=== PATIENT | male | born 1965 | race Caucasian/White ===

== ENCOUNTER 2018-09-10 07:22 | Emergency (ER) | payer BC, OTHER ==
[~2018-09-10] VITALS: Ht 188 cm; Wt 100.0 kg
[2018-09-10] MEDS ORDERED: TETRACAINE 0.5% OPHTH SOLN 4ML OD ONE (08:00)
[2018-09-10] MEDS ORDERED: FLUORESCEIN OPHTH 1 MG STRIP OD ONE (08:00)
[2018-09-10] MEDS ORDERED: ADACEL/BOOSTRIX VACCINE (DIPHTH/PERTUSS/ACELL/TETANUS)0.5ML SYR (90715) IM ONE (08:15)
[2018-09-10] MEDS ORDERED: CIPROFLOXACIN 0.3% OPHTH SOLN 2.5ML OD ONE (08:15)
[2018-09-10] MEDS ORDERED: CIPR0.3S OD (08:21)
[2018-09-10 08:47] VITALS: BP 130/92
== END 2018-09-10 08:47 | disposition home or self-care (01) ==
LOC: M ED 07:22
DX: S05.01XA Injury of conjunctiva and corneal abrasion without foreign body, right eye, initial encounter (principal); X58.XXXA Exposure to other specified factors, initial encounter; Y92.89 Other specified places as the place of occurrence of the external cause; I10 Essential (primary) hypertension; Z91.018 Allergy to other foods; Z88.0 Allergy status to penicillin

== ENCOUNTER → 2019-11-21 | Outpatient (CLI) | payer BC, OTHER ==
[~2019-11-21] MED LIST: CIPR0.3S6 OD; PROHANCE 279.3MG/ML 15ML VIAL As Ordered ONE; PROHANCE 279.3MG/ML 5ML VIAL As Ordered ONE
--- NOTE | 2019-11-27 11:03 | REP ---
MRI OF THE RIGHT KNEE WITH AND WITHOUT CONTRAST: 11/21/19 HISTORY: Pain. Palpable lump bilaterally. MRI of the right knee is performed in the axial, coronal, and sagittal planes prior to and following the intravenous administration of 20ml ProHance. The area of the palpable lump laterally is marked on the skin. There's no evidence of a meniscal tear. The cruciate ligaments are intact. The medial collateral ligament is intact. There is ill-defined high signal on T2 weighted images in the inferior aspect of the fibular collateral ligament and also in the adjacent anterior ligament of the fibular head, consistent with partial tears. These are probably chronic. There is adjacent cystic change more superficially laterally in the region of the palpable lump with multiloculate multi-septated sub-centimeter cyst along the lateral margin of the fibular head and peroneus longus. These extend for a craniocaudal dimension of about 2.5cm with a maximum width of the cysts 5mm. There is ill-defined edema in the adjacent extensor digitorum longus muscle suggesting a strain. Tiny sub-centimeter cyst with a thin septation is seen at the proximal tibiofibular articulation. The extensor mechanism is intact. 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 There is mild chondromalacia diffusely of the femoral condyles and tibial plateaus with no focal defect. There is no abnormal bone marrow signal. There is no bone marrow edema or occult fracture. There is a normal amount of joint fluid. There is a tiny amount of fluid in the medial popliteal fossa. There is no abnormal enhancement following the administration of intravenous contrast. IMPRESSION: 1. No meniscal tear. Cruciate ligaments intact. There appears to be a partial tear, likely chronic, of the inferior aspect of the fibular collateral ligament and also of the adjacent anterior ligament of the fibular head. At the site of the palpable lump in the adjacent lateral soft tissues, there are multiple septated loculated sub-centimeter cysts along the lateral margin of the fibular head and peroneus longus muscle as discussed above. There is also edema in the adjacent extensor digitorum longus muscle likely representing a muscle strain. 2. Moderate chondromalacia of the patella with a more mild degree of chondromalacia of the femoral condyles and tibial plateaus. No bone marrow abnormality is seen. MTDD
== END ==
LOC: M RAD 08:43
PROVIDERS: ATTEND Orthopaedic Surgery
DX: M94.261 Chondromalacia, right knee (principal)
CPT/HCPCS: 73723; A9576

== ENCOUNTER 2022-01-06 23:19 | Emergency (ER) | payer BC, OTHER ==
[~2022-01-06] VITALS: Ht 188 cm; Wt 90.1 kg
[~2022-01-06 23:19] MED LIST changes: -PROHANCE 279.3MG/ML 15ML VIAL As Ordered ONE; -PROHANCE 279.3MG/ML 5ML VIAL As Ordered ONE
[2022-01-07 00:12] LABS: EOS % 0.8 % (0.0-3.0); HEMATOCRIT 41.2 % (42.0-52.0); HEMOGLOBIN 13.3 g/dl (13.5-17.5); LYMPH # 0.8 10^3/uL (1.5-5.0); LYMPH % 30.3 % (24.0-44.0); MEAN CORPUSCULAR HEMOGLOBIN 28.7 pg (27.0-33.0); MEAN CORPUSCULAR HGB CONC 32.3 g/dl (32.0-36.5); MONO # 0.3 10^3/uL (0.0-0.8); MONO % 12.5 % (2.0-8.0); NEUTROPHILS # 1.5 10^3/uL (1.5-8.5); NEUTROPHILS % 55.6 % (36.0-66.0); PLATELET COUNT, AUTOMATED 150 10^3/uL (150-450); RED BLOOD COUNT 4.63 10^6/uL (4.30-6.10); WHITE BLOOD COUNT 2.6 10^3/uL (4.0-10.0)
[2022-01-07 00:23] LABS: ALBUMIN 3.4 G/DL (3.2-5.2); ALT/SGPT 28 U/L (7.0-40); BILIRUBIN,DIRECT 0.2 MG/DL (<0.4); BILIRUBIN,TOTAL 0.6 MG/DL (0.3-1.2); BLOOD UREA NITROGEN 17 MG/DL (9-23); CALCIUM LEVEL 7.6 MG/DL (8.5-10.1); CARBON DIOXIDE LEVEL 26 MMOL/L (20-31); CHLORIDE LEVEL 104 MMOL/L (98-107); CK-MB VALUE MASS < 1.0 NG/ML (<3.6); CPK CREATINE PHOSPHOKINASE 104 U/L (46-171); CREATININE FOR GFR 0.91 MG/DL (0.70-1.30); GLOMERULAR FILTRATION RATE > 60.0 (>56); GLUCOSE, FASTING 120 MG/DL (60-100); MAGNESIUM LEVEL 1.8 MG/DL (1.8-2.4); MB/CK RELATIVE INDEX 0.96 (< OR =4); POTASSIUM SERUM 3.7 MMOL/L (3.5-5.1); SODIUM LEVEL 141 MMOL/L (136-145); THYROID STIMULATING HORMONE 1.878 uIU/ML (0.55-4.78); THYROXINE (T4) 8.1 UG/DL (4.5-10.9); TOTAL PROTEIN 5.9 G/DL (5.7-8.2)
[2022-01-07] MEDS ORDERED: NS 1,000 ML IV ONE (02:00)
[2022-01-07 03:32] LABS: CK-MB VALUE MASS 1.2 NG/ML (<3.6); MB/CK RELATIVE INDEX 1.14 (< OR =4)
[2022-01-07] MEDS ORDERED: ASPIRIN 81 MG CHEW TABLET PO ONE (04:15)
[2022-01-07] MEDS ORDERED: HEPARIN DRIP 25,000 UNITS in IV 1 EA IV SCH (04:15)
[2022-01-07] MEDS ORDERED: ISOVUE-370 76% 100ML VIAL As Ordered ONE (04:20)
[2022-01-07 06:11] LABS: CK-MB VALUE MASS 1.1 NG/ML (<3.6); MB/CK RELATIVE INDEX 1.12 (< OR =4)
[2022-01-07] MEDS ORDERED: OSELTAMIVIR PHOSPHATE 75 MG CAP (TAMIFLU) PO ONE (06:15)
[2022-01-07] MEDS ORDERED: hydrALAZINE 20MG/ML 1ML VIAL (J0360 PER 20MG) IV STA (07:29)
[2022-01-07 08:25] VITALS: BP 135/91
== END 2022-01-07 08:30 | disposition short-term general hospital (02) ==
LOC: M ED 23:19 → EDBD 23:19 → M ED 01-07 08:30
DX: J09.X2 Influenza due to identified novel influenza A virus with other respiratory manifestations (principal); I21.4 Non-ST elevation (NSTEMI) myocardial infarction; Z88.0 Allergy status to penicillin; Z91.018 Allergy to other foods
CPT/HCPCS: 70450; 71045; 71275; 72125; 80048; 80076; 82550; 82553; 83605; 83735; 83880; 84436; 84443; 84484; 85025; 87486; 87581; 87633; 87798; 93005; 96374; 99285; J1644

== ENCOUNTER 2023-09-08 03:33 | Emergency (ER) | payer BC, OTHER ==
[~2023-09-08] VITALS: Ht 188 cm; Wt 93.3 kg
[~2023-09-08 03:33] MED LIST changes: +CIPR0.3S37 OD; -CIPR0.3S6 OD
[2023-09-08 03:34] VITALS: TEMP 97.6
[2023-09-08] MEDS ORDERED: NITROGLYCERIN 0.4MG SUBL TABLET As Ordered ONE (03:57)
[2023-09-08] MEDS ORDERED: HEPARIN DRIP 25,000 UNITS in IV 1 EA IV SCH (04:00)
[2023-09-08] MEDS ORDERED: HEPARIN SOD (PORCINE) 5000UNITS/ML 1ML VIAL/SYRINGE IV ONE (04:00)
[2023-09-08] MEDS ORDERED: HEPARIN SOD (PORCINE) 5000UNITS/ML 1ML VIAL/SYRINGE IV PRN (04:00)
[2023-09-08] MEDS ORDERED: ATROPINE SULF 0.4 MG/ML 1ML VIAL As Ordered ONE (04:01)
[2023-09-08] MEDS ORDERED: ATROPINE SULF 1MG/10ML SYRINGE As Ordered ONE (04:20)
[2023-09-08] MEDS: CLOPIDOGREL 300 MG TAB (PLAVIX) PO ONE (04:21)
[2023-09-08] MEDS ORDERED: TENECTEPLASE 50 MG/10 ML VIAL As Ordered ONE (04:25)
[2023-09-08 04:28] LABS: BASO % 0.2 % (0.0-1.0); EOS % 0.3 % (0.0-3.0); HEMATOCRIT 44.9 % (42.0-52.0); LYMPH % 9.8 % (24.0-44.0); MEAN CORPUSCULAR HEMOGLOBIN 28.9 pg (27.0-33.0); MEAN CORPUSCULAR HGB CONC 33.4 g/dl (32.0-36.5); MEAN CORPUSCULAR VOLUME 86.5 fl (80.0-96.0); MONO # 0.3 10^3/uL (0.0-0.8); MONO % 3.1 % (2.0-8.0); NEUTROPHILS # 8.7 10^3/uL (1.5-8.5); NEUTROPHILS % 86.2 % (36.0-66.0); PLATELET COUNT, AUTOMATED 224 10^3/uL (150-450); RED BLOOD COUNT 5.19 10^6/uL (4.30-6.10)
[2023-09-08] MEDS: TENECTEPLASE 50 MG/10 ML VIAL IV STA (04:32)
[2023-09-08] MEDS: LORazepam 2 MG/ML 1ML VIAL IV STA (04:33)
[2023-09-08] MEDS: NITROGLYCERIN 0.4MG SUBL TABLET SL PRN (04:33)
[2023-09-08 04:34] VITALS: BP 147/94
[2023-09-08] MEDS: HEPARIN DRIP 25,000 UNITS in IV 1 EA IV SCH (04:39)
[2023-09-08 04:40] VITALS: O2SAT 97
[2023-09-08 04:40] LABS: INR 1.02; PARTIAL THROMBOPLASTIN TIME 29.6 SECONDS (24.8-34.2); PROTHROMBIN TIME 13.1 SECONDS (12.5-14.5)
[2023-09-08] MEDS: HEPARIN SOD (PORCINE) 5000UNITS/ML 1ML VIAL/SYRINGE IV ONE (04:40)
[2023-09-08 04:51] LABS: LIPASE 35 U/L (12-53)
[2023-09-08 04:53] LABS: BLOOD UREA NITROGEN 20 MG/DL (9-23); CARBON DIOXIDE LEVEL 32 MMOL/L (20-31); CHLORIDE LEVEL 102 MMOL/L (98-107); CHOLESTEROL LEVEL 279 MG/DL (<200); CHOLESTEROL RISK RATIO 4.02 (<5); CK-MB VALUE MASS 2.9 NG/ML (<3.6); CPK CREATINE PHOSPHOKINASE 100 U/L (46-171); CREATININE FOR GFR 0.82 MG/DL (0.70-1.30); GLOMERULAR FILTRATION RATE > 60.0 (>56); GLUCOSE, FASTING 109 MG/DL (60-100); HDL CHOLESTEROL 69.4 MG/DL (>40); LDL CHOLESTEROL 192.8 MG/DL (<100); NON-HDL-C 209.6 MG/DL; POTASSIUM SERUM 3.8 MMOL/L (3.5-5.1); SODIUM LEVEL 140 MMOL/L (136-145); TRIGLYCERIDES LEVEL 84 MG/DL (<150)
== END 2023-09-08 04:47 | disposition short-term general hospital (02) ==
LOC: M ED 03:33
DX: I21.3 ST elevation (STEMI) myocardial infarction of unspecified site (principal); R55 Syncope and collapse; Z88.0 Allergy status to penicillin; Z88.8 Allergy status to other drugs, medicaments and biological substances
CPT/HCPCS: 70450; 71045; 80048; 80061; 82550; 82553; 83690; 84484; 85025; 85610; 85730; 93005; 93041; 94760; 96365; 96375; 96376; 99285; J2060; J3101

== ENCOUNTER 2023-11-21 10:30 | Emergency (ER) | payer BC ==
[~2023-11-21] VITALS: Ht 188 cm; Wt 88.6 kg
[2023-11-21 11:00] VITALS: TEMP 97.7
[2023-11-21 11:07] LABS: BASO % 0.3 % (0.0-1.0); EOS % 0.1 % (0.0-3.0); HEMATOCRIT 45.2 % (42.0-52.0); HEMOGLOBIN 15.4 g/dl (13.5-17.5); LYMPH # 0.7 10^3/uL (1.5-5.0); LYMPH % 9.2 % (24.0-44.0); MEAN CORPUSCULAR HEMOGLOBIN 29.7 pg (27.0-33.0); MEAN CORPUSCULAR HGB CONC 34.1 g/dl (32.0-36.5); MEAN CORPUSCULAR VOLUME 87.3 fl (80.0-96.0); MONO # 0.3 10^3/uL (0.0-0.8); MONO % 3.4 % (2.0-8.0); NEUTROPHILS # 6.6 10^3/uL (1.5-8.5); NEUTROPHILS % 86.9 % (36.0-66.0); PLATELET COUNT, AUTOMATED 212 10^3/uL (150-450); RED BLOOD COUNT 5.18 10^6/uL (4.30-6.10); WHITE BLOOD COUNT 7.6 10^3/uL (4.0-10.0)
[2023-11-21] MEDS ORDERED: FARX1TAB3 (11:13)
[2023-11-21] MEDS ORDERED: METO1TAB33 (11:13)
[2023-11-21] MEDS ORDERED: EZET10TA21 (11:13)
[2023-11-21] MEDS ORDERED: REPA140I2 (11:13)
[2023-11-21] MEDS ORDERED: CLOP75TA2 (11:13)
[2023-11-21] MEDS ORDERED: LISI5TAB11 (11:13)
[2023-11-21] MEDS ORDERED: ASPI-226 (11:13)
[2023-11-21] MEDS ORDERED: SPIR-10 (11:13)
[2023-11-21 11:19] LABS: INR 1.03; PROTHROMBIN TIME 13.2 SECONDS (12.5-14.5)
[2023-11-21 11:38] LABS: CK-MB VALUE MASS < 1.0 NG/ML (<3.6); LIPASE 33 U/L (12-53)
[2023-11-21 11:40] LABS: ALBUMIN 4.3 G/DL (3.2-5.2); ALKALINE PHOSPHATASE 80 U/L (46-116); ALT/SGPT 29 U/L (7.0-40); AST/SGOT 14 U/L (<34); BILIRUBIN,DIRECT 0.3 MG/DL (<0.4); BILIRUBIN,TOTAL 0.9 MG/DL (0.3-1.2); BLOOD UREA NITROGEN 19 MG/DL (9-23); CALCIUM LEVEL 9.5 MG/DL (8.3-10.6); CARBON DIOXIDE LEVEL 28 MMOL/L (20-31); CHLORIDE LEVEL 107 MMOL/L (98-107); CREATININE FOR GFR 0.89 MG/DL (0.70-1.30); GLOMERULAR FILTRATION RATE > 60.0 (>49); GLUCOSE, FASTING 104 MG/DL (74-106); POTASSIUM SERUM 4.4 MMOL/L (3.5-5.1); SODIUM LEVEL 139 MMOL/L (136-145); TOTAL PROTEIN 7.3 G/DL (5.7-8.2)
[2023-11-21 11:46] LABS: CPK CREATINE PHOSPHOKINASE 65 U/L (46-171); MB/CK RELATIVE INDEX 1.53 (< OR =4)
[2023-11-21 12:34] LABS: CK-MB VALUE MASS < 1.0 NG/ML (<3.6)
[2023-11-21 12:36] LABS: CPK CREATINE PHOSPHOKINASE 58 U/L (46-171); MB/CK RELATIVE INDEX 1.72 (< OR =4)
[2023-11-21] MEDS: SUCRALFATE SUSP 1GM/10ML UD PO ONE (12:41)
[2023-11-21 14:54] VITALS: BP 132/88
[2023-11-21] MEDS: NITROGLYCERIN 0.4MG SUBL TABLET SL PRN (14:54)
[2023-11-21] MEDS: PANTOPRAZOLE 40MG TAB (PROTONIX) PO ONE (15:00)
[2023-11-21] MEDS: ALPRAZolam 0.25 MG TAB PO ONE (15:31)
[2023-11-21 15:45] VITALS: BP 124/87
[2023-11-21] MEDS ORDERED: XANA0.25 PO (15:52)
[2023-11-21] MEDS ORDERED: PROT1TAB2 PO (15:52)
[2023-11-21] MEDS ORDERED: NITR0.4S14 SL (15:53)
[2023-11-21 16:00] VITALS: O2SAT 97
== END 2023-11-21 16:05 | disposition home or self-care (01) ==
LOC: M ED 10:30
DX: R07.9 Chest pain, unspecified (principal); I25.2 Old myocardial infarction; I44.5 Left posterior fascicular block; I25.119 Atherosclerotic heart disease of native coronary artery with unspecified angina pectoris; Z88.0 Allergy status to penicillin; Z91.018 Allergy to other foods; Z79.01 Long term (current) use of anticoagulants; Z79.1 Long term (current) use of non-steroidal anti-inflammatories (NSAID); Z79.899 Other long term (current) drug therapy

== ENCOUNTER 2023-11-22 03:45 | Emergency (ER) | payer BC ==
[~2023-11-22] VITALS: Ht 188 cm; Wt 96.7 kg
[~2023-11-22 03:45] MED LIST changes: +ASPI-226; +CLOP75TA2; +EZET10TA21; +FARX1TAB3; +LISI5TAB11; +METO1TAB33; +NITR0.4S14 SL; +PROT1TAB2 PO; +REPA140I2; +SPIR-10; +XANA0.25 PO
[2023-11-22] MEDS ORDERED: HYOSCYAMINE SULFATE 0.125 MG SUBL TABLET SL ONE (04:00)
[2023-11-22] MEDS: MORPHINE 2 MG/ML 1ML VIAL IV ONE ×2 (04:13→05:46)
[2023-11-22] MEDS ORDERED: ATROPINE SULF 0.4 MG/ML 1ML VIAL As Ordered ONE (04:25)
[2023-11-22 04:30] LABS: BASO % 0.5 % (0.0-1.0); EOS # 0.1 10^3/uL (0.0-0.5); EOS % 1.4 % (0.0-3.0); HEMATOCRIT 43.8 % (42.0-52.0); HEMOGLOBIN 14.6 g/dl (13.5-17.5); LYMPH # 1.7 10^3/uL (1.5-5.0); LYMPH % 30.6 % (24.0-44.0); MEAN CORPUSCULAR HEMOGLOBIN 29.4 pg (27.0-33.0); MEAN CORPUSCULAR HGB CONC 33.3 g/dl (32.0-36.5); MEAN CORPUSCULAR VOLUME 88.3 fl (80.0-96.0); MONO # 0.5 10^3/uL (0.0-0.8); MONO % 8.9 % (2.0-8.0); NEUTROPHILS # 3.3 10^3/uL (1.5-8.5); NEUTROPHILS % 58.1 % (36.0-66.0); PLATELET COUNT, AUTOMATED 229 10^3/uL (150-450); RED BLOOD COUNT 4.96 10^6/uL (4.30-6.10); WHITE BLOOD COUNT 5.6 10^3/uL (4.0-10.0)
[2023-11-22] MEDS: ATROPINE SULF 0.4 MG/ML 1ML VIAL IV STA (04:30)
[2023-11-22] MEDS: NOREPINEPHRINE 4MG IN D5 250ML 4 MG in IV 1 EA IV SCH (04:37)
[2023-11-22 04:44] LABS: BLOOD UREA NITROGEN 18 MG/DL (9-23); CALCIUM LEVEL 9.2 MG/DL (8.3-10.6); CARBON DIOXIDE LEVEL 28 MMOL/L (20-31); CHLORIDE LEVEL 105 MMOL/L (98-107); CREATININE FOR GFR 0.99 MG/DL (0.70-1.30); GLOMERULAR FILTRATION RATE > 60.0 (>49); GLUCOSE, FASTING 102 MG/DL (74-106); POTASSIUM SERUM 4.2 MMOL/L (3.5-5.1); SODIUM LEVEL 141 MMOL/L (136-145)
[2023-11-22 04:46] LABS: CPK CREATINE PHOSPHOKINASE 117 U/L (46-171)
[2023-11-22] MEDS ORDERED: HEPARIN SOD (PORCINE) 5000UNITS/ML 1ML VIAL/SYRINGE IV PRN (04:50)
[2023-11-22] MEDS ORDERED: ISOVUE-370 76% 100ML VIAL As Ordered ONE (04:55)
[2023-11-22 05:00] LABS: CK-MB VALUE MASS 6.9 NG/ML (<3.6); MB/CK RELATIVE INDEX 5.89 (< OR =4)
[2023-11-22] MEDS: HEPARIN SOD (PORCINE) 5000UNITS/ML 1ML VIAL/SYRINGE IV ONE (05:20)
[2023-11-22] MEDS: HEPARIN DRIP 25,000 UNITS in IV 1 EA IV SCH (05:22)
[2023-11-22 05:24] VITALS: TEMP 97.6
[2023-11-22] MEDS: fentaNYL 100 MCG/2 ML INJECTION IV ONE (05:24)
[2023-11-22 06:05] LABS: CK-MB VALUE MASS 5.8 NG/ML (<3.6)
[2023-11-22 06:11] LABS: MB/CK RELATIVE INDEX 5.91 (< OR =4)
[2023-11-22 06:30] VITALS: BP 134/85; O2SAT 99
== END 2023-11-22 06:31 | disposition short-term general hospital (02) ==
LOC: M ED 03:45
DX: I21.4 Non-ST elevation (NSTEMI) myocardial infarction (principal); R00.1 Bradycardia, unspecified; I25.2 Old myocardial infarction; K21.9 Gastro-esophageal reflux disease without esophagitis; E11.9 Type 2 diabetes mellitus without complications; I10 Essential (primary) hypertension; E78.5 Hyperlipidemia, unspecified; F41.9 Anxiety disorder, unspecified; Z88.0 Allergy status to penicillin; Z91.018 Allergy to other foods; Z79.1 Long term (current) use of non-steroidal anti-inflammatories (NSAID); Z79.4 Long term (current) use of insulin; Z79.899 Other long term (current) drug therapy
CPT/HCPCS: 71045; 71275; 80048; 82550; 82553; 84484; 85025; 85730; 93005; 93041; 94760; 96365; 96374; 96375; 96376; 99291; J0461; J3010; Q9967

== ENCOUNTER 2024-02-01 18:21 | Emergency (ER) | payer BC ==
[2024-02-01] MEDS ORDERED: PRAS10TA2 (18:36)
[2024-02-01 18:46] LABS: BASO % 0.2 % (0.0-1.0); EOS % 0.5 % (0.0-3.0); HEMATOCRIT 50.9 % (42.0-52.0); HEMOGLOBIN 17.2 g/dl (13.5-17.5); LYMPH # 1.3 10^3/uL (1.5-5.0); MEAN CORPUSCULAR HEMOGLOBIN 29.1 pg (27.0-33.0); MEAN CORPUSCULAR HGB CONC 33.8 g/dl (32.0-36.5); MONO # 0.4 10^3/uL (0.0-0.8); MONO % 4.6 % (2.0-8.0); NEUTROPHILS # 6.5 10^3/uL (1.5-8.5); NEUTROPHILS % 78.5 % (36.0-66.0); PLATELET COUNT, AUTOMATED 245 10^3/uL (150-450); WHITE BLOOD COUNT 8.3 10^3/uL (4.0-10.0)
[2024-02-01 18:49] LABS: RED BLOOD COUNT 5.92 10^6/uL (4.30-6.10)
[2024-02-01 18:56] LABS: INR 0.97; PROTHROMBIN TIME 13.2 SECONDS (12.5-14.5)
[2024-02-01 19:20] LABS: ALBUMIN 4.6 G/DL (3.2-5.2); ALKALINE PHOSPHATASE 73 U/L (40-129); ALT/SGPT 31 U/L (7.0-40); AST/SGOT 56 U/L (<34); BILIRUBIN,DIRECT 0.2 MG/DL (<0.4); BILIRUBIN,TOTAL 1.1 MG/DL (0.3-1.2); BLOOD UREA NITROGEN 19 MG/DL (9-23); CALCIUM LEVEL 9.7 MG/DL (8.3-10.6); CARBON DIOXIDE LEVEL 27 MMOL/L (20-31); CHLORIDE LEVEL 104 MMOL/L (98-107); CK-MB VALUE MASS < 1.0 NG/ML (<3.6); CPK CREATINE PHOSPHOKINASE 87 U/L (46-171); CREATININE FOR GFR 0.84 MG/DL (0.70-1.30); GLOMERULAR FILTRATION RATE > 60.0 (>49); GLUCOSE, FASTING 96 MG/DL (74-106); LIPASE 44 U/L (12-53); MB/CK RELATIVE INDEX 1.14 (< OR =4); POTASSIUM SERUM 5.2 MMOL/L (3.5-5.1); SODIUM LEVEL 139 MMOL/L (136-145); TOTAL PROTEIN 8.4 G/DL (5.7-8.2)
[2024-02-01] MEDS ORDERED: ISOVUE-370 76% 100ML VIAL As Ordered ONE (19:35)
[2024-02-01 19:41] LABS: MAGNESIUM LEVEL 2.4 MG/DL (1.8-2.4)
[2024-02-01 20:27] LABS: CK-MB VALUE MASS < 1.0 NG/ML (<3.6)
[2024-02-01 20:29] LABS: CPK CREATINE PHOSPHOKINASE 45 U/L (46-171); MB/CK RELATIVE INDEX 2.22 (< OR =4)
[2024-02-01 22:00] VITALS: BP 128/82; TEMP 97.6; O2SAT 97
== END 2024-02-01 22:05 | disposition home or self-care (01) ==
LOC: M ED 18:21
DX: R07.89 Other chest pain (principal); R53.83 Other fatigue; I25.2 Old myocardial infarction; K21.9 Gastro-esophageal reflux disease without esophagitis; I10 Essential (primary) hypertension; F41.9 Anxiety disorder, unspecified; F32.A Depression, unspecified; Z88.0 Allergy status to penicillin; Z91.018 Allergy to other foods; Z79.1 Long term (current) use of non-steroidal anti-inflammatories (NSAID); Z79.899 Other long term (current) drug therapy
CPT/HCPCS: 36415; 70450; 70498; 71045; 80048; 80076; 82550; 82553; 83690; 83735; 84484; 85025; 85610; 87486; 87581; 87633; 87798; 93005; 93041; 94760; 99285; Q9967

== ENCOUNTER 2024-09-20 21:22 | Emergency (ER) | payer BC ==
[~2024-09-20] VITALS: Ht 188 cm; Wt 91.3 kg
[~2024-09-20 21:22] MED LIST changes: +PRAS10TA2
[2024-09-20] MEDS ORDERED: PRAS10TA2 PO (21:32)
[2024-09-20 22:07] LABS: BASO # 0.0 10^3/uL (0.0-0.2); BASO % 0.4 % (0.0-1.0); EOS # 0.1 10^3/uL (0.0-0.5); EOS % 2.2 % (0.0-3.0); LYMPH # 1.5 10^3/uL (1.5-5.0); LYMPH % 32.5 % (24.0-44.0); MONO # 0.4 10^3/uL (0.0-0.8); MONO % 9.0 % (2.0-8.0); NEUTROPHILS # 2.6 10^3/uL (1.5-8.5); NEUTROPHILS % 55.7 % (36.0-66.0); PLATELET COUNT, AUTOMATED 201 10^3/uL (150-450)
[2024-09-20 23:19] LABS: CK-MB VALUE MASS 1.8 NG/ML (<3.6)
[2024-09-20 23:20] LABS: CALCIUM LEVEL 9.3 MG/DL (8.3-10.6); CARBON DIOXIDE LEVEL 30.0 MMOL/L (20-31); CHLORIDE LEVEL 103.0 MMOL/L (98-107); CREATININE FOR GFR 1.06 MG/DL (0.70-1.30); GLOMERULAR FILTRATION RATE 79.9 (>49); POTASSIUM SERUM 4.0 MMOL/L (3.5-5.1); SODIUM LEVEL 143.0 MMOL/L (136-145)
[2024-09-20 23:25] LABS: CPK CREATINE PHOSPHOKINASE 69.0 U/L (46-171); MB/CK RELATIVE INDEX 2.6 (< OR =4)
[2024-09-20 23:35] LABS: CK-MB VALUE MASS 2.0 NG/ML (<3.6)
[2024-09-20 23:36] LABS: CPK CREATINE PHOSPHOKINASE 61.0 U/L (46-171); MB/CK RELATIVE INDEX 3.27 (< OR =4)
[2024-09-21] VITALS: BP 125/84; TEMP 98; O2SAT 96
== END 2024-09-21 00:10 | disposition home or self-care (01) ==
LOC: M ED 21:22
DX: S13.4XXA Sprain of ligaments of cervical spine, initial encounter (principal); Y92.9 Unspecified place or not applicable; Y93.9 Activity, unspecified; Y99.9 Unspecified external cause status; R00.1 Bradycardia, unspecified; I25.119 Atherosclerotic heart disease of native coronary artery with unspecified angina pectoris; I25.2 Old myocardial infarction; F10.10 Alcohol abuse, uncomplicated; Z88.0 Allergy status to penicillin; Z91.018 Allergy to other foods; Z79.1 Long term (current) use of non-steroidal anti-inflammatories (NSAID); Z79.899 Other long term (current) drug therapy